=== PATIENT | male | born 1975 | race Two or more races ===

== ENCOUNTER 2017-08-20 20:38 | Emergency (ER) | payer BC ==
[~2017-08-20] VITALS: Ht 190.5 cm; Wt 117.9 kg
[~2017-08-20 20:38] MED LIST: HYDR1TAB PO
--- NOTE | 2017-08-20 21:15 | NUR ---
Dr. Miller at bedside for MSE.
--- NOTE | 2017-08-20 21:28 | NUR ---
Patient discharged to home in stable conditon. Written and verbal after care instructions given. Patient verbalizes understanding of instructions. Patient ambulated out of ER with steady gait, no acute signs of distress, VSS, all belongings taken.
[2017-08-20 21:30] VITALS: BP 115/84
== END 2017-08-20 21:31 | disposition home or self-care (01) ==
LOC: ER 20:43
DX: Z04.1 Encounter for examination and observation following transport accident (principal); M54.32 Sciatica, left side; G89.29 Other chronic pain; Z79.891 Long term (current) use of opiate analgesic; V43.52XA Car driver injured in collision with other type car in traffic accident, initial encounter; Y93.89 Activity, other specified; Y92.410 Unspecified street and highway as the place of occurrence of the external cause; Y99.8 Other external cause status
CPT/HCPCS: A4663